=== PATIENT | male | born 1955 | race Caucasian/White ===

== ENCOUNTER 2020-10-02 10:38 | Observation (INO) | payer OTHER ==
[~2020-10-02] VITALS: Ht 193 cm; Wt 86.2 kg
[2020-10-02] VITALS (7 sets, daily range): BP systolic 140–158; BP diastolic 69–91
--- NOTE | ~2020-10-02 | O ---
[facility] [place] [address] [address] OPERATIVE REPORT Name: MAGDA AYALA Room #: 463-P [facility] M.RHarini#: [id number] Admission: 10/02/20 Attend Phys: Bernardo Petty MD Discharge: 10/02/20 Date of : 53 Report #: [id number] THIS REPORT FOR: cc: Renaldo Hanson,Bernardo Almanza MD ~ DOC #: [id number] cc: MD Bernardo Warren MD PREOPERATIVE DIAGNOSIS: Cholecystitis with sludge/cholesterolosis. POSTOPERATIVE DIAGNOSIS: Cholecystitis with sludge/cholesterolosis. PROCEDURE PERFORMED: Laparoscopic cholecystectomy with cholangiogram. SURGEON: Bernardo Petty MD ANESTHESIA: General anesthesia. COMPLICATIONS: None. BLOOD LOSS: 5 mL. DESCRIPTION OF PROCEDURE: With the patient under general anesthesia, abdomen was prepped and draped in sterile fashion. IV antibiotic was administered. A timeout was performed. A 0.25% Marcaine was used to anesthetize the skin infraumbilically and subcutaneous tissue. Curvilinear incision measuring 2 cm was made infraumbilically. Fascia was identified. The fascia was grasped with hemostat. Fascia was then opened under visualization, 0 Vicryl sutures were placed on the fascial edges for retraction. A Veress needle was then placed through peritoneum. Abdominal cavity was insufflated with CO2 without difficulty. After creating pneumoperitoneum with pressure of 15, an 11 mm trocar was placed into the pneumoperitoneum, no harm to the underlying tissue. The patient did have redundant colon in the right upper quadrant with moderate stool. Two 5 mm trocars were placed in the right upper quadrant and a 5 mm trocar placed in right epigastrium. Gallbladder was lifted over the liver. Lateral aspect of the gallbladder had a fatty adhesion to it. Adhesion even was over by the area of the liver laterally. These adhesions were taken down. Gallbladder was then isolated. The peritoneum was dissected free lateral to the neck of the gallbladder and the cystic duct. The peritoneum was free medially. The patient's common duct can be visualized through a thin peritoneal layer. He does not have much fat. Cystic duct was isolated. Cystic duct was clipped junction to the gallbladder. Opening was made in the cystic duct. Cholangiogram catheter was placed. The cholangiogram catheter was identified in [address] [address] OPERATIVE REPORT Name: MAGDA AYALA Room #: 463-P JESUS Butler#: [id number] Admission: 10/02/20 Attend Phys: Bernardo Petty MD Discharge: 10/02/20 Date of : 53 Report #: [id number] the cystic duct. No harm to the common duct. The common duct filled out well without any filling defect. Catheter was then removed. The proximal cystic duct was then clipped x2 and then divided. Cystic artery was isolated, clipped x2 proximally. The cystic artery was divided right at it bifurcated. Distal branch was also clipped off. Gallbladder was freed from the liver bed without difficulty. Some edema in the gallbladder wall was visualized. Gallbladder was free without difficulty. Gallbladder was opened off the field. There was sludgy material in the gallbladder, cholesterolosis in the wall. No tumors or lesions seen otherwise. The liver bed was checked, hemostasis obtained and is excellent. CO2 was evacuated, trocars were removed. Irrigation was also aspirated out. CO2 was evacuated as much as possible. The infraumbilical fascia defect was closed with [id number] 0 Vicryl x2. Skin was irrigated. Skin was closed with 5-0 PDS. Steri-Strips applied. Bandage was used. The patient tolerated the procedure well. Bernardo Petty MD PYC/STANISLAW By: 1107 1234 Bernardo Petty MD /nt
[~2020-10-02 10:38] MED LIST: ASA81BEC PO; FISH OIL 1,0001 EAC9 PO; FLOMAX0.4 MG PO; GLUCOSAMINE &1 EACH PO; LOTENSIN20 MG PO
--- NOTE | 2020-10-02 12:01 | EKG ---
[address] [address] ELECTROCARDIOGRAM REPORT Name: MAGDA AYALA Room #: REG [facility] M.R.#: [id number] Admission: 10/02/20 Attend Phys: Bernardo Petty MD Discharge: Date of : 53 Report #: [id number] 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
[2020-10-02] MEDS ORDERED: HYDROCODON-ACE1 EAC7 PO (14:26)
--- NOTE | 2020-10-02 19:27 | NUR ---
Received pt as Observation from post op. with 4 lap sites, c/d/i. VS monitored and stable. Started diet on clear liquids and will advance as tolerated. POC followed with no signs or verbalizatiosn of distress noted. Pt eager to leave fay, pt came up almost 6 pm and was advised to observe til 8 pm. was at the bed side prescriptions given. Endorse to the night nurse.
--- NOTE | 2020-10-02 22:05 | NUR ---
ASSUMED PT CARE AT 1900.PT WAS OBSERVED LYING ON HIS BED WITH HIS EYES OPEN WITH AT BEDSIDE AT SHIFT CHANGE.PT DENIED PAIN/N/V.PT WAS EAGER TO DC HOME AT 8PM.VS:BP 140/91, P 72, R 14, T 98.1, 02 SAT 97%.PRESCRIPTION GIVEN TO PT, LEFT TO FILL IT.PT DISCHARGED AT 2100 WHEN THE CAME BACK.IV ACCESS DC.PT LEFT WITH ALL HIS PERSONAL BELONGINGS IN A STABLE CONDITION.
--- NOTE | 2020-10-05 18:06 | PATH ---
[facility] [place] [address] PATHOLOGY RPT PROCEDURE Name: MAGDA AYALA Room #: 463-P JESUS Agee M.RHarini#: [id number] Admission: 10/02/20 Date of : 53 Discharge: 10/02/20 Report #: [id number] Path Case #: [id number] [facility] Accession Number: [id number] . 01 Material submitted: . gallbladder - GALLBLADDER . 01 Clinical history: . LAPAROSCOPIC CHOLECYSTECTOMY WITH G . 02 Diagnosis: Gallbladder, cholecystectomy: - Mild chronic cholecystitis. ([facility] closer; 10/05/2020) R 10/05/2020 1552 Local . 02 Electronically signed: . Marsha Kuhn MD, Pathologist NPI- [id number] . 01 Gross description: . Fixative: Formalin Labeled: Gallbladder Specimen received: Previously opened Dimensions: 8.1 x 3.2 x 2.1 cm Serosa: Smooth, yellow-green with a roughened hepatic bed Lymph node: No Mucosa: Velvety green-brown Average wall thickness: 0.5 cm Calculi: No Abnormalities: None A1- Contract Lead body, fundus, and the cystic duct margin(inked black). ([facility]; 10/03/2020) GZA/GZA 10/05/2020 1551 Local . 02 Pathologist provided ICD-10: K81.1 . 02 CPT . 827044 Specimen Comment: A courtesy copy of this report has been sent to [phone] Specimen Comment: Report sent to Performed at: [address], [place], [place] [id number] MD Anthony Mota MD Phone: [phone] Performed at: [address] [address] PATHOLOGY RPT PROCEDURE Name: JAMIEMAGDA MALIKA Room #: 463-P [facility] Anuel HariniHarini#: [id number] Admission: 10/02/20 Date of : 53 Discharge: 10/02/20 Report #: [id number] Path Case #: [id number] [address] [id number] MD Marsha Kuhn MD Phone: [phone]
== END 2020-10-02 21:00 | disposition home or self-care (01) ==
LOC: OR 10:38 → 4W 17:08
PROVIDERS: ADMIT Surgery; ATTEND Surgery
DX: K81.9 Cholecystitis, unspecified (principal); Z20.822 Contact with and (suspected) exposure to COVID-19
CPT/HCPCS: 50010; 50411; 50555; 50558; 51489; 52265; 53307; 53310; 55245; 55317; 56462; 56525; 56526; 58574